=== PATIENT | female | born 1995 | race Caucasian/White ===

== ENCOUNTER 2019-01-22 08:53 | Inpatient (IN) | payer OTHER ==
[2019-01-22] MEDS ORDERED: SOD CHLORIDE 0.9% 1,000 ML IV (10:00)
[2019-01-22] MEDS: CEFAZOLIN 2 GM/50 ML (PMX) 50 ML IVPB ×2 (10:00→21:29)
[2019-01-22] MEDS ORDERED: ONDANSETRON 4 MG INJ IV (12:30)
[2019-01-22] MEDS ORDERED: ALBUTEROL 0.083% (NEB) 2.5 MG/3 ML AMP HHN (12:30)
[2019-01-22] MEDS ORDERED: MEPERIDINE 25 MG INJ IV (12:30)
[2019-01-22] MEDS ORDERED: DIPHENHYDRAMINE 50 MG INJ IV (12:30)
[2019-01-22] MEDS ORDERED: METOCLOPRAMIDE 10 MG INJ IV (12:30)
[2019-01-22] MEDS ORDERED: HYDROmorphONE 1 MG/5 ML IV SYRINGE IV ×3 (12:30)
[2019-01-22] MEDS ORDERED: FENTAnyl 50 MCG/ML VIAL IV ×3 (12:30)
[2019-01-22] MEDS ORDERED: LIDOCAINE 2% (SDV) 5 ML INJ (12:59)
[2019-01-22] MEDS ORDERED: SUCCINYLCHOLINE CHLORIDE 100 MG/5 ML SYG IV (12:59)
[2019-01-22] MEDS ORDERED: FENTAnyl 50 MCG/ML VIAL (12:59)
[2019-01-22] MEDS ORDERED: GLYCOPYRROLATE 0.4 MG INJ (12:59)
[2019-01-22] MEDS ORDERED: ROCURONIUM 50 MG INJ (14:13)
[2019-01-22] MEDS ORDERED: SUGAMMADEX SODIUM 200 MG/2 ML VIAL IV (14:13)
[2019-01-22] MEDS ORDERED: PROPOFOL 20 ML (14:13)
[2019-01-22] MEDS ORDERED: CEFAZOLIN 1 GM INJ (14:13)
[2019-01-22] MEDS: BUPIVACAINE 0.25% (MPF) 30 ML INJ (14:21)
[2019-01-22] MEDS ORDERED: CEFAZOLIN 2 GM/50 ML (PMX) 50 ML IVPB (14:30)
[2019-01-22] MEDS ORDERED: morphine 2 MG INJ IV (14:30)
[2019-01-22 14:56] LABS: ADD MAN DIFF? NO
[2019-01-22 14:58] LABS: BASOPHIL # 0.1 10^3/ul (0.0-0.1); BASOPHILS % 0.7 % (0.0-2.0); EOSINOPHILS # 0.3 10^3/ul (0.0-0.5); EOSINOPHILS % 3.9 % (0.0-7.0); HEMATOCRIT 39.4 % (37.0-47.0); LYMPHOCYTES # 3.3 10^3/ul (0.8-2.9); LYMPHOCYTES % 46.8 % (15.0-51.0); MEAN CORPUSCULAR VOLUME 90.8 fl (82.0-101.0); MEAN PLATELET VOLUME 9.4 fl (7.4-10.4); MONOCYTE # 0.5 10^3/ul (0.3-0.9); MONOCYTES % 6.6 % (0.0-11.0); NEUTROPHIL # 2.9 10^3/ul (1.6-7.5); NEUTROPHILS % 41.7 % (39.0-77.0); PLATELET COUNT 301 10^3/UL (140-415); RED BLOOD COUNT 4.34 10^6/ul (4.20-5.40)
[2019-01-22 15:23] LABS: ALANINE AMINOTRANSFERASE 31 IU/L (13-69); ALBUMIN 3.6 g/dl (3.3-4.9); ALKALINE PHOSPHATASE 56 IU/L (42-121); ANION GAP 8 (5-13); ASPARTATE AMINO TRANSFERASE 28 IU/L (15-46); BILIRUBIN,INDIRECT 0.4 mg/dl (0-1.1); BILIRUBIN,TOTAL 0.4 mg/dl (0.2-1.3); BLOOD UREA NITROGEN 7 mg/dl (7-20); CALCIUM 8.5 mg/dl (8.4-10.2); CARBON DIOXIDE 21 mmol/L (21-31); CHLORIDE 112 mmol/L (97-110); CREATININE 0.65 mg/dl (0.44-1.00); Estimated GFR > 60 mL/min (>60); GLUCOSE 109 mg/dl (70-220); POTASSIUM 3.9 mmol/L (3.5-5.1); SODIUM 141 mmol/L (135-144); TOTAL PROTEIN 6.6 g/dl (6.1-8.1)
[2019-01-22] MEDS: LACTATED RINGER'S 1,000 ML IV (16:21)
[2019-01-22] MEDS ORDERED: ALBUTEROL/IPRATROPIUM (NEB) 3 ML AMP HHN (16:30)
[2019-01-22] MEDS: ONDANSETRON 4 MG INJ IV (16:34)
[2019-01-22] MEDS: HYDROCODONE/APAP (5/325) TAB PO (21:29)
[2019-01-23 01:56] LABS: CALCIUM 8.1 mg/dl (8.4-10.2)
[2019-01-23] MEDS ORDERED: CALCIUM CARBONATE 1.25 GM TAB PO (02:30)
[2019-01-23] MEDS: LACTATED RINGER'S 1,000 ML IV ×2 (03:10→10:19)
[2019-01-23] MEDS: CA CARBONATE (250 MG/ML PO SYG) PO (03:10)
[2019-01-23 05:26] LABS: BASOPHIL # 0.1 10^3/ul (0.0-0.1); BASOPHILS % 0.5 % (0.0-2.0); EOSINOPHILS # 0.1 10^3/ul (0.0-0.5); HEMATOCRIT 38.1 % (37.0-47.0); HEMOGLOBIN 12.6 g/dl (12.0-16.0); LYMPHOCYTES # 2.6 10^3/ul (0.8-2.9); LYMPHOCYTES % 25.4 % (15.0-51.0); MEAN CORPUSCULAR HEMOGLOBIN 30.1 pg (29.0-33.0); MEAN CORPUSCULAR HGB CONC 33.1 g/dl (32.0-37.0); MEAN CORPUSCULAR VOLUME 90.9 fl (82.0-101.0); MEAN PLATELET VOLUME 9.7 fl (7.4-10.4); MONOCYTE # 0.7 10^3/ul (0.3-0.9); MONOCYTES % 6.6 % (0.0-11.0); NEUTROPHIL # 6.9 10^3/ul (1.6-7.5); NEUTROPHILS % 66.3 % (39.0-77.0); PLATELET COUNT 316 10^3/UL (140-415); RED BLOOD COUNT 4.19 10^6/ul (4.20-5.40); RED CELL DISTRIBUTION WIDTH 13.2 % (11.5-14.5)
[2019-01-23 05:26] LABS: WHITE BLOOD COUNT 10.4 10^3/ul (4.8-10.8)
[2019-01-23 05:27] LABS: ADD MAN DIFF? NO
[2019-01-23] MEDS: CEFAZOLIN 2 GM/50 ML (PMX) 50 ML IVPB ×2 (05:32→14:29)
[2019-01-23 06:15] LABS: ALANINE AMINOTRANSFERASE 29 IU/L (13-69); ALBUMIN 3.5 g/dl (3.3-4.9); ALBUMIN/GLOBULIN RATIO 1.12; ALKALINE PHOSPHATASE 48 IU/L (42-121); ANION GAP 6 (5-13); ASPARTATE AMINO TRANSFERASE 41 IU/L (15-46); BILIRUBIN,INDIRECT 0.5 mg/dl (0-1.1); BILIRUBIN,TOTAL 0.5 mg/dl (0.2-1.3); BLOOD UREA NITROGEN 6 mg/dl (7-20); CALCIUM 8.1 mg/dl (8.4-10.2); CARBON DIOXIDE 26 mmol/L (21-31); CHLORIDE 107 mmol/L (97-110); CREATININE 0.68 mg/dl (0.44-1.00); Estimated GFR > 60 mL/min (>60); GLUCOSE 91 mg/dl (70-220); POTASSIUM 3.6 mmol/L (3.5-5.1); SODIUM 139 mmol/L (135-144); TOTAL PROTEIN 6.6 g/dl (6.1-8.1)
[2019-01-23 15:03] LABS: ANION GAP 8 (5-13); BLOOD UREA NITROGEN 6 mg/dl (7-20); CALCIUM 8.2 mg/dl (8.4-10.2); CARBON DIOXIDE 25 mmol/L (21-31); CHLORIDE 107 mmol/L (97-110); CREATININE 0.82 mg/dl (0.44-1.00); Estimated GFR > 60 mL/min (>60); GLUCOSE 85 mg/dl (70-220); POTASSIUM 3.8 mmol/L (3.5-5.1); SODIUM 140 mmol/L (135-144)
== END 2019-01-23 17:33 | disposition home or self-care (01) | DRG 624 ==
LOC: REC 08:53 → MS1 16:05
PROC: 0GTG0ZZ Resection of Left Thyroid Gland Lobe, Open Approach (ICD-10-PCS; principal; 2019-01-22 12:00)
PROC: 0HX4XZZ Transfer Neck Skin, External Approach (ICD-10-PCS; 2019-01-22 12:00)
PROC: 0GTH0ZZ Resection of Right Thyroid Gland Lobe, Open Approach (ICD-10-PCS; 2019-01-22 12:00)
DX: C73 Malignant neoplasm of thyroid gland (principal); E06.3 Autoimmune thyroiditis; L40.9 Psoriasis, unspecified
CPT/HCPCS: 80048; 80053; 82310; 84703; 85025; 88307

== ENCOUNTER → 2019-03-02 | Outpatient (CLI) | payer OTHER | END | disposition home or self-care (01) | LOC: NUC 13:02 | DX: C73 Malignant neoplasm of thyroid gland (principal) | CPT/HCPCS: 79005 ==